=== PATIENT | female | born 1995 | race Caucasian/White ===

== ENCOUNTER 2019-02-03 14:38 | Emergency (ER) | payer BC ==
[2019-02-03 15:44] LABS: Bilirubin Small (Negative); Blood, Urine Negative (Negative); Clarity Slightly Cloudy (Clear); Glucose, Urine (Dipstick) Negative (Negative); Leukocyte Negative (Negative); Nitrite Negative (Negative); Protein, Urine (Dipstick) Negative (Neg-Trace); Urobilinogen 0.2 mg/dL (Less than 2)
[2019-02-03 15:50] LABS: Pregnancy Test - Urine (BHCG) Negative (Negative); Pregu Control Background? CLEAR/WHITE (CLR/WHITE); Pregu Control Bar Appear? YES (CONTROL BAR)
--- NOTE | 2019-02-03 16:09 | RAD ---
EXAM: XR Lumbar Spine 2 Or 3 View PROVIDED CLINICAL HISTORY: Low back pain after injury. COMPARISON: None FINDINGS: There are 5 nonrib-bearing lumbar-type vertebral bodies. The vertebral body heights and intervertebra l disc spaces are within normal limits. No fracture or subluxation is seen involving the lumbar spine. IMPRESSION: No acute osseous abnormality. If patient continues to complain of back pain for if there is a neurolo gical deficit, MRI lumbar spine may be helpful for further evaluation
[2019-02-03] MEDS ORDERED: Bacitracin Zinc Ointment 30 gm TUBE ONE (16:24)
== END 2019-02-03 16:35 | disposition home or self-care (01) ==
LOC: SCSER 14:38
DX: S39.012A Strain of muscle, fascia and tendon of lower back, initial encounter (principal); S80.812A Abrasion, left lower leg, initial encounter; X50.9XXA Other and unspecified overexertion or strenuous movements or postures, initial encounter; Y93.64 Activity, baseball
CPT/HCPCS: 72100; 81003; 81025